=== PATIENT | male | born 1995 ===

== ENCOUNTER 2019-04-25 13:22 | Inpatient (IN) | payer MEDICAID, OTHER ==
[~2019-04-25] VITALS: Ht 190.5 cm; Wt 71.3 kg
[2019-04-25] MEDS ORDERED: ZOLPIDEM TARTRATE 10 MG TABLET PO PRN (15:30)
[2019-04-25] MEDS ORDERED: HALOPERIDOL 5 MG TABLET PO PRN (15:30)
[2019-04-25 17:31] VITALS: BP 147/96
[2019-04-25] MEDS ORDERED: DiphenhydrAMINE HCL 50 MG/ML VIAL IM ONE (20:45)
[2019-04-25] MEDS ORDERED: LORazepam 2 MG/ML VIAL IM ONE (20:45)
[2019-04-25] MEDS ORDERED: HALOPERIDOL LACTATE 5 MG/ML VIAL IM ONE (20:45)
[2019-04-26] MEDS ORDERED: MAGNESIUM HYDROXIDE SUSPENSION 30 ML UDCUP PO PRN (12:00)
[2019-04-26] MEDS ORDERED: IBUPROFEN 400 MG TABLET PO PRN (12:00)
[2019-04-26] MEDS ORDERED: MAG HYDROX/AL HYDROX/SIMETH ES 30 ML SUSPENSION UDCUP PO PRN (12:00)
[2019-04-26] MEDS ORDERED: PETROLATUM,WHITE 28 GM JELLY TP PRN (12:00)
[2019-04-26] MEDS ORDERED: NICOTINE 14 MG/24 HOUR PATCH TD PRN (12:00)
[2019-04-26] MEDS ORDERED: ACETAMINOPHEN 325 MG TABLET PO PRN (12:00)
[2019-04-26] MEDS ORDERED: GuaiFENesin/D-METHORPHAN [SUGAR-FREE] 200-20MG/10 ML SYRUP UDCUP PO PRN (12:00)
[2019-04-26] MEDS ORDERED: DOCUSATE SODIUM 100 MG CAPSULE PO PRN (12:00)
[2019-04-26] MEDS ORDERED: ONDANSETRON HCL 4 MG TABLET PO PRN (12:00)
[2019-04-26] MEDS ORDERED: LOPERAMIDE HCL 2 MG CAPSULE PO PRN (12:00)
[2019-04-26] MEDS ORDERED: CloNIDine HCL 0.1 MG TABLET PO PRN (12:00)
[2019-04-26] MEDS ORDERED: ALBUTEROL SULFATE HFA 90 MCG/PUFF 8 GM INHALER IH PRN (12:00)
[2019-04-26 12:18] LABS: GLUCOMETER DEV NAME(LOC) 3E.C; GLUCOSE,POINT OF CARE 102 MG/DL (70-110)
[2019-04-26 16:30] VITALS: BP 110/76
[2019-04-27 08:00] VITALS: BP 128/78
[2019-04-27] MEDS: LORazepam 2 MG TABLET PO PRN ×2 (08:47→15:43)
[2019-04-27 16:27] VITALS: BP 146/75
[2019-04-28 08:00] VITALS: BP 125/88
[2019-04-28] MEDS: LORazepam 2 MG TABLET PO PRN (10:39)
== END 2019-04-28 14:45 | disposition home or self-care (01) | DRG 885 ==
LOC: EMS 13:28 → 3EC 16:34
PROVIDERS: ADMIT Psychiatry & Neurology Psychiatry; ATTEND Psychiatry & Neurology Psychiatry
DX: F20.9 Schizophrenia, unspecified (principal); F10.10 Alcohol abuse, uncomplicated; R03.0 Elevated blood-pressure reading, without diagnosis of hypertension; H57.04 Mydriasis; Z59.0 Homelessness
CPT/HCPCS: J1200; J1630; J2060